=== PATIENT | male | born 1955 | race Two or more races ===

== ENCOUNTER 2022-05-13 07:05 | Emergency (ER) | payer OTHER ==
[~2022-05-13] VITALS: Ht 165.1 cm; Wt 53.1 kg
[2022-05-13] MEDS ORDERED: ZESTRIL20 MG PO (07:22)
[2022-05-13] MEDS ORDERED: CRESTOR20 MG PO (07:22)
== END 2022-05-13 21:42 | disposition home or self-care (01) ==
LOC: ER 07:05
DX: K57.32 Diverticulitis of large intestine without perforation or abscess without bleeding (principal); R10.13 Epigastric pain; I10 Essential (primary) hypertension; Z88.2 Allergy status to sulfonamides